=== PATIENT | female | born 1975 | race Caucasian/White ===

== ENCOUNTER 2021-11-29 14:08 | Emergency (ER) | payer BC ==
[~2021-11-29] VITALS: Ht 167.6 cm; Wt 64.9 kg
[2021-11-29 14:40] VITALS: BP 119/52
--- NOTE | 2021-11-29 14:44 | PHYS DOC ---
General Adult EDM: Chief Complaint: CHEST PAIN HPI: HPI: Patient is a 46-year-old female who presents to the emergency department for left-sided chest pain that started 2 hours ago.. She describes the chest pain as an ache today and states that it moves across her entire chest. She reports that she had the chest pain 2 weeks ago but it was sharp and stabbing and she only experienced it at nighttime. Patient reports that she can pinpoint the area of her pain on her left upper chest. She reports nausea and shortness of breath that is intermittent lasting seconds. She denies any fevers, cough, vomiting. She has no medical history. She is a current smoker. (JARAD DAVE APRN) Review of Systems: Review of Systems: Constitutional: See HPI Respiratory: See HPI Cardiovascular: See HPI GI: See HPI Musculoskeletal: See HPI (JARAD DAVE APRN) Current Medications: Current Meds: Current Medications Medications (Trade) Dose Ordered Sig/Bart Start Time Stop Time Status Last Admin Dose Admin Morphine Sulfate (Morphine 2mg Syringe) 2 mg 1X ONCE 11/29/21 14:45 11/29/21 14:46 UNV Sodium Chloride 1,000 ml @ 1,000 mls/hr Q1H 11/29/21 14:45 11/29/21 15:44 UNV (JARAD DAVE APRN) Physical Exam: PE: Constitutional: Well developed, well nourished, no acute distress, non-toxic appearance. [] HENT: Normocephalic, atraumatic, bilateral external ears normal, oropharynx moist, no oral exudates, nose normal. [] Eyes: PERRL, EOMI, conjunctiva normal, no discharge. [] Neck: Normal range of motion, no tenderness, supple, no stridor. [] Cardiovascular:Heart rate regular rhythm, no murmur, left chest wall tenderness with palpation [] Lungs & Thorax: Bilateral breath sounds clear to auscultation [] Abdomen: Bowel sounds normal, soft, no tenderness, no masses, no pulsatile masses. [] Skin: Warm, dry, no erythema, no rash. [] Back: No tenderness, normal ROM Extremities: No tenderness, no cyanosis, no clubbing, ROM intact, no edema. [] Neurologic: Alert and oriented X 3, normal motor function, normal sensory function, no focal deficits noted. [] Psychologic: Affect normal, judgement normal, mood normal. [] (JARAD DAVE L [employer]) Current Patient Data: Labs: Laboratory Tests Test 11/29/21 14:27 White Blood Count 5.5 x10^3/uL Red Blood Count 4.36 x10^6/uL Hemoglobin 13.1 g/dL Hematocrit 38.6 % Mean Corpuscular Volume 89 fL Mean Corpuscular Hemoglobin 30 pg Mean Corpuscular Hemoglobin Concent 34 g/dL Red Cell Distribution Width 13.2 % Platelet Count 250 x10^3/uL Neutrophils (%) (Auto) 69 % Lymphocytes (%) (Auto) 24 % Monocytes (%) (Auto) 5 % Eosinophils (%) (Auto) 1 % Basophils (%) (Auto) 1 % Neutrophils # (Auto) 3.8 x10^3uL Lymphocytes # (Auto) 1.3 x10^3/uL Monocytes # (Auto) 0.3 x10^3/uL Eosinophils # (Auto) 0.1 x10^3/uL Basophils # (Auto) 0.1 x10^3/uL D-Dimer (Mary Ann) 0.33 mg/L Sodium Level 139 mmol/L Potassium Level 3.8 mmol/L Chloride Level 105 mmol/L Carbon Dioxide Level 26 mmol/L Anion Gap 8 Blood Urea Nitrogen 8 mg/dL Creatinine 0.8 mg/dL Estimated GFR (Cockcroft-Gault) 77.2 BUN/Creatinine Ratio 10 Glucose Level 108 mg/dL Calcium Level 9.0 mg/dL Total Bilirubin 0.3 mg/dL Aspartate Amino Transf (AST/SGOT) 27 U/L Alanine Aminotransferase (ALT/SGPT) 44 U/L Alkaline Phosphatase 68 U/L Troponin I High Sensitivity 5 ng/L Total Protein 7.4 g/dL Albumin 3.6 g/dL Albumin/Globulin Ratio 0.9 Current Medications Medications (Trade) Dose Ordered Sig/Bart Route PRN Reason Start Time Stop Time Status Last Admin Dose Admin Morphine Sulfate (Morphine 2mg Syringe) 2 mg 1X ONCE IV 11/29/21 14:45 11/29/21 14:52 DC 11/29/21 14:52 Sodium Chloride 1,000 ml @ 1,000 mls/hr Q1H IV 11/29/21 14:45 11/29/21 15:44 DC 11/29/21 14:52 (JARAD DAVE APRN) EKG: EKG: EKG performed by ER staff at 1420 shows sinus rhythm with a rate of 63, no STEMI read by Dr. Gross 1425 [] (JARAD DAVE APRN) Radiology/Procedures: Radiology/Procedures: [] AP chest x-ray HISTORY: Chest pain. FINDINGS: Heart size normal. Mediastinal silhouette normal. No pneumothorax, pulmonary opacities or pleural effusions. Bones are unremarkable. IMPRESSION: No acute process. Electronically signed by: Lulu Gilman MD (11/29/2021 3:06 PM) [facility] [place] BY: LULU GILMAN MD DATE: 11/29/21 3393 CC: JARAD DAVE APRN; PCP,NO ~ (JARAD DAVE APRN) Heart Score: C/O Chest Pain: Yes HEART Score for Chest Pain: HEART Score for Chest Pain Response (Comments) Value History Slighlty/Non-Suspicious 0 ECG Normal 0 Age >45 - < 65 1 Risk Factors 1 or 2 Risk Factors 1 Troponin < Normal Limit 0 Total 2 Risk Factors: Risk Factors: DM, Current or recent (<one month) smoker, HTN, HLP, family history of CAD, obesity. Risk Scores: Score 0 - 3: 2.5% MACE over next 6 weeks - Discharge Home Score 4 - 6: 20.3% MACE over next 6 weeks - Admit for Clinical Observation Score 7 - 10: 72.7% MACE over next 6 weeks - Early Invasive Strategies (JARAD DAVE APRN) Course & Med Decision Making: Course & Med Decision Making Pertinent Labs and Imaging studies reviewed. (See chart for details) Patient presents to the emergency department for left-sided chest pain that started 2 hours ago. She reports that she had this pain previously 2 weeks ago and is intermittent. Work-up in the ER consisted of blood work including troponin and D-dimer, EKG and chest x-ray. Patient's risk factors cigarette s moking use. Patient's lab work is unremarkable. Chest x-ray negative. She had negative troponin and negative D-dimer. Patient reports that her pain has improved following treatment in the emergency department as she would not like any additional pain medication. Patient will be monitored in the emergency department and have a serial troponin performed. This was also negative. Patient advised to take Tylenol and ibuprofen for pain and follow-up with a rpg developer. I discussed with patient all findings and diagnostic testing as well as the need to follow-up with PCP for further evaluation and treatment or return to the ER if any new or worsening symptoms. Strict return precautions were also discussed at length. Patient voiced understanding and agreement with the plan. Patient is hemodynamically stable at the time of disposition. (JARAD DAVE APRN) Dragon Disclaimer: Dragon Disclaimer: This electronic medical record was generated, in whole or in part, using a voice recognition dictation system. (JARAD DAVE APRN) Attending Co-Sign The patient was seen and interviewed as well as examined at the bedside. The chart was reviewed. The case was discussed. Agree with the plan of care. (ANNIE GROSS DO) Departure Departure: Impression: Primary Impression: Atypical chest pain Disposition: HOME / SELF CARE / HOMELESS Condition: GOOD Referrals: PCP,NO (PCP) Patient Instructions: Chest Pain (Nonspecific) Additional Instructions: You were seen in the emergency department today for chest pain. As we discussed, it does not appear that you are experiencing acute coronary syndrome at this time. You can take Tylenol and ibuprofen at home for your pain. Please follow-up with your primary care provider on Thursday regarding your ER visit. You may need to be evaluated by a rpg developer. Was attached to this discharge paperwork. Please call them on Thursday. Return to the emergency department if you develop chest pain, shortness of breath, high fevers refractory to treatment, dizziness or syncope, intractable nausea or vomiting. JARAD DAVE APRN November 29, 2021 14:44 ANNIE GROSS DO November 30, 2021 07:28
[2021-11-29] MEDS ORDERED: IV NORMAL SALINE 1,000ML 1,000 ML IV SCH (14:45)
[2021-11-29] MEDS ORDERED: MORPHINE SULFATE 2 MG/ML DISP.SYRIN. IV ONE (14:45)
[2021-11-29 14:56] LABS: BASO # 0.1 x10^3/uL (0.0-0.2); BASO % 1 % (0-3); EOS # 0.1 x10^3/uL (0.0-0.7); EOS % 1 % (0-3); HEMATOCRIT 38.6 % (36.0-47.0); HEMOGLOBIN 13.1 g/dL (12.0-15.5); LYMPH # 1.3 x10^3/uL (1.0-4.8); LYMPH % 24 % (24-48); MEAN CORPUSCULAR HEMOGLOBIN 30 pg (25-35); MEAN CORPUSCULAR HGB CONC 34 g/dL (31-37); MEAN CORPUSCULAR VOLUME 89 fL (79-100); MONO # 0.3 x10^3/uL (0.0-1.1); MONO % 5 % (0-9); NEUT # 3.8 x10^3uL (1.8-7.7); NEUT % 69 % (31-73); PLATELET COUNT 250 x10^3/uL (140-400); RED BLOOD COUNT 4.36 x10^6/uL (3.50-5.40); RED CELL DISTRIBUTION WIDTH 13.2 % (11.5-14.5); WHITE BLOOD COUNT 5.5 x10^3/uL (4.0-11.0)
[2021-11-29 14:58] LABS: CREATININE 0.8 mg/dL (0.6-1.0); GFR 77.2; POTASSIUM 3.8 mmol/L (3.5-5.1)
[2021-11-29 15:05] LABS: ALBUMIN 3.6 g/dL (3.4-5.0); ALBUMIN/GLOBULIN RATIO 0.9 (1.0-1.7); TOTAL BILIRUBIN 0.3 mg/dL (0.2-1.0); TOTAL PROTEIN 7.4 g/dL (6.4-8.2)
--- NOTE | 2021-11-29 15:09 | RAD ---
AP chest x-ray HISTORY: Chest pain. FINDINGS: Heart size normal. Mediastinal silhouette normal. No pneumothorax, pulmonary opacities or p leural effusions. Bones are unremarkable. IMPRESSION: No acute process. Electronically signed by: Jose Wesley MD (11/29/2021 3:06 PM) [facility] [place]
== END 2021-11-29 17:36 | disposition home or self-care (01) ==
LOC: ER 14:08
DX: R07.89 Other chest pain (principal); R06.02 Shortness of breath; R11.0 Nausea; F17.200 Nicotine dependence, unspecified, uncomplicated
CPT/HCPCS: 36415; 71045; 80053; 84484; 85025; 85379; 93005; 96361; 96374; 99285; J2270; J7030